=== PATIENT | male | born 1940 | race Caucasian/White ===

== ENCOUNTER 2023-11-15 16:48 | Emergency (ER) | payer OTHER ==
[~2023-11-15] VITALS: Ht 170.2 cm; Wt 97.5 kg
[~2023-11-15 16:48] MED LIST: ALBU90OI INH; CAVERJECT40 MCG IC; DIPH50 PO; FLUO10 PO; HYDACE5 PO; INSN100I SC; JARDIANCE25 MG PO; LAMO100 PO; LISI20 PO; LORA10 PO; LOVA40 PO; METF500 PO; METO5A PO; OMEP20ER PO; ONDA4ODT MM; PROACE100 PO; REFRESH CELLUV1 EACH BOTHEYES; VARDENAFIL HCL PO; WARF5 PO; WARF7.5 PO
[2023-11-15 16:52] VITALS: BP 147/71
[2023-11-15 17:24] LABS: BASOPHILS ABSOLUTE AUTO 0.07 K/mm3 (0.00-0.23); BASOPHILS PERCENT AUTO 1 % (0-2); EOSINOPHILS ABSOLUTE AUTO 0.55 K/mm3 (0.00-0.68); EOSINOPHILS PERCENT AUTO 6 % (0-6); Hematocrit 46.2 % (37.0-53.0); Hemoglobin 16.1 g/dL (13.5-17.5); IMMATURE GRAN ABSOLUTE AUTO 0.04 K/mm3 (0.00-0.10); IMMATURE GRAN PERCENT AUTO 1 % (0-1); LYMPHOCYTES PERCENT AUTO 21 % (21-46); MONOCYTES ABSOLUTE AUTO 0.58 K/mm3 (0.16-1.47); MONOCYTES PERCENT AUTO 7 % (4-13); Mean Corpuscular HGB 31.4 pg (26.0-34.0); Mean Corpuscular HGB Conc 34.8 g/dL (31.5-36.5); Mean Corpuscular Volume 90 fL (80-100); Mean Platelet Volume 9.4 fL (9.1-12.4); NEUTROPHILS ABSOLUTE AUTO 5.58 K/mm3 (1.96-9.15); NEUTROPHILS PERCENT AUTO 65 % (41-73); Platelet Count 196 K/mm3 (150-400); RDW Coefficient Variation 12.6 % (11.7-14.2); RDW Standard Deviation 41.3 fL (35.1-46.3); Red Blood Cell Count 5.12 M/mm3 (4.30-5.90); White Blood Cell Count 8.62 K/mm3 (4.00-11.30)
[2023-11-15 17:37] LABS: Albumin, Blood 3.6 g/dL (3.4-5.0); Albumin/Globulin Ratio 1.2 (0.8-1.8); Bilirubin, Total 0.6 mg/dL (0.1-1.0); Bun/Creatinine Ratio 14.9 (12.0-20.0); Calcium, Blood 8.9 mg/dL (8.5-10.1); Creatinine, Blood 1.54 mg/dL (0.60-1.20); Globulin, Blood 3.1 g/dL (2.2-4.0); Total Protein, Blood 6.7 g/dL (6.4-8.2)
[2023-11-15 18:10] LABS: International Normalized Ratio 6.44
[2023-11-15] MEDS ORDERED: Phytonadione 5 MG Tab PO ONE (20:25)
[2023-11-15] MEDS ORDERED: Pantoprazole Sodium 40 MG Injection IV ONE (20:25)
== END 2023-11-15 20:44 | disposition home or self-care (01) ==
LOC: ER 16:48
PROVIDERS: Physician Assistant
DX: K92.1 Melena (principal); R79.1 Abnormal coagulation profile; E11.9 Type 2 diabetes mellitus without complications; I10 Essential (primary) hypertension; E78.5 Hyperlipidemia, unspecified; F31.9 Bipolar disorder, unspecified; Z79.01 Long term (current) use of anticoagulants; Z79.4 Long term (current) use of insulin; Z79.899 Other long term (current) drug therapy; Z88.8 Allergy status to other drugs, medicaments and biological substances; Z88.1 Allergy status to other antibiotic agents; Z88.2 Allergy status to sulfonamides; Z91.048 Other nonmedicinal substance allergy status; Z87.891 Personal history of nicotine dependence
CPT/HCPCS: 80053; 85025; 85610; 96374; 99285-25; A9270; J2470

== ENCOUNTER 2024-10-29 11:01 | Day surgery (SDC) | payer OTHER ==
[~2024-10-29] VITALS: Ht 167.6 cm; Wt 97.1 kg
[~2024-10-29 11:01] MED LIST changes: +Balanced Salt Epinephrine Irrigation Solution 500 mL IR SCH; +CARV3.125 PO; +CLON.5 PO; +GABA300 PO; +LEVSOD25 PO; +PHENYLEPHRINE\\TROPICAMIDE\\TETRACAINE OPHTHALMIC DILATING SOLN LEFTEYE PRN; +Povidone-Iodine 450 DROP/30 ML Solution LEFTEYE SCH; +Povidone-Iodine 450 DROP/30 ML Solution ONE; +Tetracaine HCl/Pf 0.5% Opth Soln 4 ml ONE; +VALS80 PO
[2024-10-29] MEDS ORDERED: FentaNYL Citrate 50 MCG/ML 2 ML Injection ONE (11:30)
[2024-10-29] MEDS ORDERED: Midazolam HCl 1MG / ML 2ML Vial ONE (11:31)
--- NOTE | 2024-10-29 11:50 | NUR ---
10/29/24 1150 Danyel Chris CALL LIGHT WITHIN REACH.
[2024-10-29] MEDS ORDERED: FELODIPINE ER2.5 M1 PO (11:55)
[2024-10-29] MEDS ORDERED: Flonase 0.05% N16 GM (11:57)
[2024-10-29] MEDS ORDERED: LAMO100 PO (11:57)
[2024-10-29] MEDS ORDERED: LOPE2C (11:59)
[2024-10-29] MEDS ORDERED: Crestor40 MG PO (11:59)
[2024-10-29] MEDS ORDERED: OZEMPIC2 MG/0.75 SQ (12:00)
[2024-10-29] MEDS ORDERED: Moxifloxacin HCL 0.5 MG/0.1 ML 0.4MLSYR LEFTEYE ONE (12:28)
[2024-10-29 12:52] VITALS: BP 131/70
--- NOTE | 2024-10-29 13:14 | NUR ---
10/29/24 1314 Jennifer Middleton REPORT RECEIVED FROM BEENA DOZIER
== END 2024-10-29 13:13 | disposition home or self-care (01) ==
LOC: ORSCSDS 11:01
PROVIDERS: Student in an Organized Health Care Education/Training Program
PROC: 08RK3JZ Replacement of Left Lens with Synthetic Substitute, Percutaneous Approach (ICD-10-PCS; principal; 2024-10-29 13:00)
DX: E11.36 Type 2 diabetes mellitus with diabetic cataract (principal); H25.812 Combined forms of age-related cataract, left eye; H52.202 Unspecified astigmatism, left eye; H21.81 Floppy iris syndrome; Z87.891 Personal history of nicotine dependence; I10 Essential (primary) hypertension; E78.5 Hyperlipidemia, unspecified; F31.9 Bipolar disorder, unspecified; Z79.84 Long term (current) use of oral hypoglycemic drugs; Z79.85 Long-term (current) use of injectable non-insulin antidiabetic drugs; Z79.01 Long term (current) use of anticoagulants; Z79.899 Other long term (current) drug therapy
CPT/HCPCS: 82947; J2250; J3010; J7120; V2632